=== PATIENT | female | born 2000 | race Caucasian/White ===

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

== ENCOUNTER 2018-03-06 16:41 | Emergency (ER) | payer OTHER ==
[~2018-03-06 16:41] MED LIST: KETOROLAC TROME10 M1 PO; ZITHROMAX500 M2 PO
== END 2018-03-06 16:49 | disposition admitted as inpatient to this hospital (09) ==
LOC: ERH 16:41
DX: S69.90XA Unspecified injury of unspecified wrist, hand and finger(s), initial encounter (principal)